=== PATIENT | male | born 1975 | race Caucasian/White ===

== ENCOUNTER 2017-05-22 06:49 | Emergency (ER) | payer MEDICAID ==
[2017-05-22 09:19] VITALS: BP 140/90
== END 2017-05-22 09:25 | disposition home or self-care (01) ==
LOC: ER 06:57
DX: F15.10 Other stimulant abuse, uncomplicated (principal); R44.0 Auditory hallucinations; F12.10 Cannabis abuse, uncomplicated; Z87.891 Personal history of nicotine dependence
CPT/HCPCS: 99283

== ENCOUNTER 2017-09-21 06:16 | Emergency (ER) | payer MEDICAID ==
[~2017-09-21] VITALS: Ht 172.7 cm; Wt 82.0 kg
[2017-09-21 06:21] VITALS: BP 157/106
== END 2017-09-21 11:54 | disposition left against medical advice (07) ==
LOC: ER 07:40
DX: J02.9 Acute pharyngitis, unspecified (principal); Z53.21 Procedure and treatment not carried out due to patient leaving prior to being seen by health care provider

== ENCOUNTER 2017-11-26 17:56 | Emergency (ER) | payer MEDICAID ==
[~2017-11-26] VITALS: Ht 172.7 cm; Wt 78.0 kg
[2017-11-26 20:16] VITALS: BP 135/79
== END 2017-11-26 21:25 | disposition home or self-care (01) ==
LOC: ER 20:32
DX: F15.10 Other stimulant abuse, uncomplicated (principal); F10.10 Alcohol abuse, uncomplicated; Y90.9 Presence of alcohol in blood, level not specified; F17.210 Nicotine dependence, cigarettes, uncomplicated
CPT/HCPCS: 71045; 99283